=== PATIENT | female | born 1990 | race Two or more races ===

== ENCOUNTER 2017-08-31 09:45 | Emergency (ER) | payer SELFPAY ==
[2017-08-31 10:06] VITALS: BP 137/82; TEMP 98.2; BMI 32.3
[2017-08-31 10:52] LABS: HCG,QUALITATIVE URINE NEGATIVE
[2017-08-31 10:56] LABS: URINE APPEARANCE CLEAR; URINE BILIRUBIN NEGATIVE (NEGATIVE); URINE BLOOD NEGATIVE (NEGATIVE); URINE COLOR STRAW; URINE GLUCOSE (UA) NEGATIVE (NEGATIVE); URINE KETONE NEGATIVE (NEGATIVE); URINE LEUK ESTERASE TRACE (NEGATIVE); URINE NITRITE NEGATIVE (NEGATIVE); URINE PROTEIN NEGATIVE (NEGATIVE); URINE UROBILINOGEN NEGATIVE mg/dL (0.2-1.0)
[2017-08-31 11:10] LABS: EPI CELLS RARE /HPF (FEW)
--- NOTE | 2017-08-31 11:49 | PDOC ---
History of Present Illness - General Chief Complaint: Urinary Problem Stated Complaint: URINARY PROBLEM Time Seen by Provider: 08/31/17 10:27 History Source: Patient Exam Limitations: No Limitations - History of Present Illness Initial Comments: 08/31/17 11:43 Patient is a [27-year-old female, denies any significant medical history currently on no medication presents for evaluation of urinary pain, frequency, lower back pain. Denies hematuria, no vaginal discharge or bleeding. No nausea or vomiting, no chest pain or shortness of breath.] Past Medical History: [Denies]. Allergies: No known allergies Medications: [None] Family History: Non-contributory Social History: Denies smoking, alcohol use, or IVDU Review of Systems GENERAL/CONSTITUTIONAL: [No fever or chills. No weakness. No weight change.] HEAD, EYES, EARS, NOSE AND THROAT: [No change in vision. No ear pain or discharge. No sore throat. ] CARDIOVASCULAR: [No chest pain or shortness of breath.] RESPIRATORY: [No cough, wheezing, or hemoptysis.] GASTROINTESTINAL: [No nausea, vomiting, diarrhea or constipation. No rectal bleeding.] GENITOURINARY: [No dysuria, frequency, or change in urination.] MUSCULOSKELETAL: [No joint or muscle swelling or pain. No neck pain, lower back pain] SKIN AND BREASTS: [No rash or easy bruising.] NEUROLOGIC: [No headache, vertigo, loss of consciousness, or loss of sensation.] PSYCHIATRIC: [No depression or anxiety.] ENDOCRINE: [No increased thirst. No abnormal weight change.] HEMATOLOGIC/LYMPHATIC: [No anemia, easy bleeding, or history of blood clots.] ALLERGIC/IMMUNOLOGIC: [No hives or skin allergy. No latex allergy.] Physical Exam: GENERAL: [The patient is awake, alert, and fully oriented, in no acute distress. ] HEAD: [Normal with no signs of trauma.] EYES: [Pupils equal, round and reactive to light, extraocular movements intact, sclera anicteric, conjunctiva clear.] ENT: [Ears normal, nares patent, oropharynx clear without exudates. Moist mucous membranes. No uvula deviation] NECK: [Normal range of motion, supple without lymphadenopathy, JVD, or masses.] LUNGS: [Breath sounds equal, clear to auscultation bilaterally. No wheezes, and no crackles.] HEART: [Regular rate and rhythm, normal S1 and S2 without murmur, rub or gallop. ] ABDOMEN: [Soft, tender suprapubic area, normoactive bowel sounds. No guarding , no rebound. No masses. No bruising or abrasions] MUSCULOSKELETAL: [Normal range of motion, no edema. No clubbing or cyanosis. No cords, erythema, or tenderness. No CVA Tenderness with fist palpation] NEUROLOGICAL: [Cranial nerves II through XII grossly intact. Normal speech, normal gait.] SKIN: [Warm, Dry, normal turgor, no rashes or lesions noted.] Past History - Past Medical History Allergies/Adverse Reactions: Allergies Allergy/AdvReac Type Severity Reaction Status Date / Time No Known Allergies Allergy Verified 08/31/17 09:54 Home Medications: Ambulatory Orders Nitrofurantoin Monohyd/M-Cryst [Macrobid -] 100 mg PO BID #14 capsule 08/31/17 COPD: No - Immunization History Immunization Up to Date: Yes - Suicide/Smoking/Psychosocial Hx Smoking History: Never smoked Have you smoked in the past 12 months: No Information on smoking cessation initiated: No Hx Alcohol Use: No Drug/Substance Use Hx: No Substance Use Type: None *Physical Exam - Vital Signs Last Vital Signs Temp Pulse Resp BP Pulse Ox 98.2 F 15 137/82 100 08/31/17 09:54 08/31/17 09:54 08/31/17 09:54 08/31/17 09:54 ED Treatment Course - ADDITIONAL ORDERS Additional order review: Laboratory Results 08/31/17 10:40 Urine Color Straw Urine Appearance Clear Urine pH 8.0 Ur Specific [place] 1.012 Urine Protein Negative Urine Glucose (UA) Negative Urine Ketones Negative Urine Blood Negative Urine Nitrite Negative Urine Bilirubin Negative Urine Urobilinogen Negative Ur Leukocyte Esterase Trace Urine WBC (Auto) 6 Urine RBC (Auto) 2 Ur Epithelial Cells Rare Urine HCG, Qual Negative Medical Decision Making - Medical Decision Making 08/31/17 11:48 Laboratory Results - last 24 hr 08/31/17 10:40 Urine Color Straw Urine Appearance Clear Urine pH 8.0 Ur Specific [place] 1.012 Urine Protein Negative Urine Glucose (UA) Negative Urine Ketones Negative Urine Blood Negative Urine Nitrite Negative Urine Bilirubin Negative Urine Urobilinogen Negative Ur Leukocyte Esterase Trace Urine WBC (Auto) 6 Urine RBC (Auto) 2 Ur Epithelial Cells Rare Urine HCG, Qual Negative A/P: Patient with dysuria, no hematuria, pain to lower suprapubic area lower back patient reports symptoms started one week ago and then resolved now returned at 3:30 AM with frequency and urination. Urinalysis demonstrated trace leukocytes with WBC of 6 I will discharge patient on Macrobid. Gonorrhea chlamydia are still pending patient to call one week for follow-up of results. Follow-up with urology as needed if symptoms persist if any fever, increased abdominal pain, nausea vomiting, or any other concerns return immediately to ER *DC/Admit/Observation/Transfer Diagnosis at time of Disposition: UTI (urinary tract infection) Qualifiers: Urinary tract infection type: site unspecified Hematuria presence: without hematuria Qualified Code(s): N39.0 - Urinary tract infection, site not specified - Discharge Dispostion Disposition: HOME Condition at time of disposition: Stable Admit: No - Prescriptions Prescriptions: Nitrofurantoin Monohyd/M-Cryst [Macrobid -] 100 mg PO BID #14 capsule - Referrals Referrals: Gene Kang MD [Staff Physician] - - Patient Instructions Additional Instructions: Please call [phone] in one week for results of testing. If any fever, increased pain or other concerns return to the ER. - Post Discharge Activity Forms/Work/School Notes: Back to Work
== END 2017-08-31 11:59 | disposition home or self-care (01) ==
LOC: JERFT 09:45
DX: N39.0 Urinary tract infection, site not specified (principal)
CPT/HCPCS: 36415; 81003; 81015; 84703; 87086; 87186; 87491; 87591; 99281-25

== ENCOUNTER 2021-12-10 21:09 | Observation (INO) | payer OTHER ==
[2021-12-10 21:38] VITALS: BMI 40.4
[2021-12-10] MEDS ORDERED: ACETAMINOPHEN 1000 MG/100 ML BAG IVPB ONE (21:48)
[2021-12-10] MEDS ORDERED: ACETAMINOPHEN INJECTION 100 ML IVPB ONE (22:04)
[2021-12-10 22:37] LABS: BASO % 0.4 % (0-2.0); EOS % 1.3 % (0-4.5); HEMATOCRIT 39.3 % (32.4-45.2); HEMOGLOBIN 12.8 GM/dL (10.7-15.3); LYMPH % 19.2 % (8-40); MCHC 32.5 g/dl (32.0-36.0); MEAN CELL VOLUME 86.2 fl (80-96); MONO % 7.3 % (3.8-10.2); NEUT % 71.8 % (42.8-82.8); PLATELET COUNT 321 10^3/uL (134-434); RBC 4.56 M/mm3 (3.60-5.2); RDW 14.6 % (11.6-15.6)
[2021-12-10 22:41] LABS: EPI CELLS 18 /uL (0-25.1); HYALINE CASTS 0 /uL (0-3.1); PH,URINE 5.5 (5.0-8.0); URINE APPEARANCE CLEAR; URINE BILIRUBIN NEGATIVE (NEGATIVE); URINE COLOR YELLOW; URINE GLUCOSE (UA) NEGATIVE (NEGATIVE); URINE KETONE NEGATIVE (NEGATIVE); URINE LEUK ESTERASE TRACE (NEGATIVE); URINE NITRITE NEGATIVE (NEGATIVE); URINE PROTEIN NEGATIVE (NEGATIVE); URINE RBC 1 /uL (0-23.9); URINE UROBILINOGEN 0.2 mg/dL (0.2-1.0); URINE WBC 2 /uL (0-25.8)
[2021-12-10 22:50] LABS: CALCIUM 8.3 mg/dL (8.5-10.1)
[2021-12-10 22:51] LABS: ALBUMIN 3.4 g/dl (3.4-5.0); BLOOD UREA NITROGEN 9.8 mg/dL (7-18); MAGNESIUM 1.9 mg/dL (1.8-2.4)
[2021-12-10 22:54] LABS: CREATININE 0.8 mg/dL (0.55-1.3)
[2021-12-10 22:55] LABS: TOT PROT 6.7 g/dl (6.4-8.2)
[2021-12-10 22:56] LABS: BILIRUBIN,TOTAL 0.4 mg/dL (0.2-1)
[2021-12-10 23:55] LABS: URINE BACTERIA 7.1 /uL (0-1359)
[2021-12-11] MEDS ORDERED: PIPERACILLIN/TAZOB 3.375 GM 3.375 GM in DEXTROSE 5%-WATER - 50 ML IVPB ONE (02:44)
[2021-12-11 05:42] VITALS: BP 118/60; PULSE 73; TEMP 97.7
== END 2021-12-11 09:50 | disposition home or self-care (01) ==
LOC: JER 21:09 → JERBED 12-11 02:45 → J8W 12-11 05:26
PROVIDERS: ADMIT Hospitalist; ATTEND Hospitalist
DX: K57.92 Diverticulitis of intestine, part unspecified, without perforation or abscess without bleeding (principal); E66.01 Morbid (severe) obesity due to excess calories; Z68.41 Body mass index [BMI] 40.0-44.9, adult; R10.32 Left lower quadrant pain; D25.9 Leiomyoma of uterus, unspecified
CPT/HCPCS: 36415; 74177-TC; 76830-TC; 80053; 81003; 83735; 84703; 85025; 87086; 93005; 93010; 99285-25; C9803-CS; G0378; U0003; U0005

== ENCOUNTER 2022-10-14 17:28 | Emergency (ER) | payer BC, OTHER ==
[2022-10-14 17:52] VITALS: BP 135/83; PULSE 70; RESP 16; TEMP 98; BMI 39.0
[2022-10-14] MEDS ORDERED: SODIUM CHLORIDE 1,000 ML IV STA (18:00)
[2022-10-14] MEDS ORDERED: ACETAMINOPHEN 1000 MG/100 ML BAG IVPB ONE (18:00)
[2022-10-14] MEDS ORDERED: ACETAMINOPHEN INJECTION 100 ML IVPB ONE (18:08)
[2022-10-14 19:42] LABS: HCG,QUALITATIVE URINE Negative
[2022-10-14 19:46] LABS: BASO % 0.6 % (0-2.0); EOS % 1.4 % (0-4.5); HEMATOCRIT 40.1 % (32.4-45.2); HEMOGLOBIN 12.9 GM/dL (10.7-15.3); LYMPH % 16.5 % (8-40); MCH 27.2 pg (25.7-33.7); MCHC 32.1 g/dl (32.0-36.0); MEAN CELL VOLUME 84.7 fl (80-96); MEAN PLT VOLUME 9.8 fl (7.5-11.1); MONO % 6.2 % (3.8-10.2); NEUT % 75.3 % (42.8-82.8); PLATELET COUNT 327 10^3/uL (134-434); RBC 4.73 M/mm3 (3.60-5.2); RDW 14.2 % (11.6-15.6); WHITE BLOOD COUNT 13.7 K/mm3 (4.0-10.0)
[2022-10-14 19:55] LABS: INR 1.03 (0.83-1.09)
[2022-10-14 19:58] LABS: ACTIVATED PTT 29.5 SECONDS (25.2-36.5)
[2022-10-14 20:00] LABS: CALCIUM 9.7 mg/dL (8.5-10.1)
[2022-10-14 20:01] LABS: ALBUMIN 3.9 g/dl (3.4-5.0); BLOOD UREA NITROGEN 13.3 mg/dL (7-18)
[2022-10-14 20:04] LABS: CREATININE 1.1 mg/dL (0.55-1.3)
[2022-10-14 20:05] LABS: BILIRUBIN,TOTAL 0.4 mg/dL (0.2-1); TOT PROT 7.8 g/dl (6.4-8.2)
[2022-10-14 20:23] LABS: URINE APPEARANCE CLEAR; URINE BILIRUBIN NEGATIVE (NEGATIVE); URINE COLOR YELLOW; URINE GLUCOSE (UA) NEGATIVE (NEGATIVE); URINE KETONE NEGATIVE (NEGATIVE); URINE LEUK ESTERASE NEGATIVE (NEGATIVE); URINE NITRITE NEGATIVE (NEGATIVE); URINE PROTEIN NEGATIVE (NEGATIVE); URINE UROBILINOGEN 0.2 mg/dL (0.2-1.0)
[2022-10-14] MEDS ORDERED: AMOX TR/POT CLAV 875MG/125MG TABLETS (FP) PO ONE (23:06)
[2022-10-14] MEDS ORDERED: KETOROLAC TROMETHAMINE 30 MG/1 ML VIAL IVPUSH ONE (23:24)
[2022-10-14] MEDS ORDERED: AMOX TR/POT CLAV 875MG/125MG TABLETS (FP) ONE (23:26)
[2022-10-14] MEDS ORDERED: KETOROLAC TROMETHAMINE 30 MG/1 ML VIAL ONE (23:26)
== END 2022-10-15 00:23 | disposition home or self-care (01) ==
LOC: JER 17:28
PROC: 3E033GC Introduction of Other Therapeutic Substance into Peripheral Vein, Percutaneous Approach (ICD-10-PCS; principal; 2022-10-14)
DX: R10.31 Right lower quadrant pain (principal)
CPT/HCPCS: 36415; 74177-TC; 80053; 81003; 83690; 84703; 85025; 85610; 85730; 87086; 99285-25; C9803-CS; Q9967; U0003; U0005